=== PATIENT | female | born 1975 | race Caucasian/White ===

== ENCOUNTER → 2017-02-14 | Outpatient (CLI) | payer SELFPAY ==
[~2017-02-14] MED LIST: ALLERGY INJ SUBQ; EXCEDRIN MIGRA1 EACH PO; IBUPROFEN800 MG PO; MULTIPLE VITAM1 EACH PO; ZYRTEC10 M1 PO
--- NOTE | ~2017-02-14 | EKG ---
PATIENT: FIDELINA ADAMSON UNIT #: [id number] Ventricular Rate: 56 BPM Atrial Rate: 56 BPM P-R Interval: 158 ms QRS Duration: 88 ms Q-T Interval: 434 ms QTC Calculation(Bezet): 418 ms P [place]: 23 degrees Calculated R [place]: 5 degrees Calculated T [place]: 4 degrees Diagnosis Line: Sinus bradycardia Diagnosis Line: Cannot rule out Anterior infarct , age Diagnosis Line: undetermined Diagnosis Line: Poor R wave progression questionable lead position Diagnosis Line: or body habitus Diagnosis Line: Borderline ECG Diagnosis Line: Diagnosis Line: Confirmed by EZ KATZ MD ([id number]) on 02/14/2017 Diagnosis Line: 5:25:11 PM INTERPRETING MD: STERLING QUINONES
--- NOTE | ~2017-02-14 | CR63 ---
[facility] A Service of [facility] & [facility] RADIOLOGY TEXT RESULTS PATIENT: FIDELINA ADAMSON LOCATION: [facility] : 77 UNIT #: [id number] AGE: [address]: Mathew Goldsmith III, MD SEX: F ORDER DR: [id number] [facility] [address] [place], [place] [address] [id number] O MR#: [id number] Acc #: [id number] NAME: FIDELINA ADAMSON : 1975 SEX: F STUDY DATE/TIME: 02/14/2017 7:55 UNIT: [facility] ROOM: STUDY DESCRIPTION: CR Chest 2 View Attending Physician: Mathew Goldsmith III, M.D. Referring Physician: Mathew Goldsmith III, M.D. Ordering Physician: Mathew Goldsmith III, M.D. Primary Care Physician: Darlene Tobias A.P.R.N. MEDICAL IMAGING REPORT This report is preliminary unless electronic signature is present EXAM Chest, PA and lateral, 02/14/2017. HISTORY Morbid obesity, preop laparoscopic gastric band placement today. Asthma. FINDINGS PA and lateral examination of the chest upright shows a good expansion of the parenchyma with a normal distribution of the pulmonary vascularity. There is no indication of congestion, effusion, infiltrate, tumor, or nodular density. The pleural reflections and diaphragmatic contours are normal. The cardiac silhouette and mediastinal anatomy is within normal limits. IMPRESSION Normal chest. Dictated by... Shaheed Martinez M.D. THIS IS AN ELECTRONICALLY VERIFIED REPORT Shaheed Martinez M.D. at 02/14/2017 4:39 PM JENNIFER/kylah TD: 02/14/2017 16:10 JOB #: [id number] MEDICAL IMAGING REPORT Page 1 of 1 COPY
--- NOTE | ~2017-02-14 | CR97 ---
[facility] A Service of [facility] & [facility] RADIOLOGY TEXT RESULTS PATIENT: FIDELINA ADAMSON LOCATION: [facility] : 79 UNIT #: [id number] AGE: [address]: Mathew Goldsmith III, MD SEX: F ORDER DR: [id number] [place] [address] [place], [place] [address] [id number] O MR#: [id number] Acc #: [id number] NAME: FIDELINA ADAMSON : 1975 SEX: F STUDY DATE/TIME: 02/14/2017 8:24 UNIT: [facility] ROOM: STUDY DESCRIPTION: CR Esophagram Attending Physician: Mathew Goldsmith III, M.D. Referring Physician: Mathew Goldsmith III, M.D. Ordering Physician: Mathew Goldsmith III, M.D. Primary Care Physician: Joyce HesterPClarkRMisael MEDICAL IMAGING REPORT This report is preliminary unless electronic signature is present EXAM Esophagram, 02/14/2017 HISTORY Planned bariatric surgery. PROCEDURE Solid column esophagram performed with 5 spot images and 0.3 minutes of fluoroscopy FINDINGS The esophagus is normal in course and caliber. There is no hernia, mass, ulceration or stricture. IMPRESSION Normal esophagram. Dictated by... Juan Carter M.D. THIS IS AN ELECTRONICALLY VERIFIED REPORT Juan Carter M.D. at 02/17/2017 9:06 AM EDWINA/allie TD: 02/15/2017 00:42 JOB #: [id number] MEDICAL IMAGING REPORT Page 1 of 1 COPY
[2017-02-14 09:20] LABS: HEMATOCRIT 38.7 % (35.0-45.0); HEMOGLOBIN 13.3 gm/dL (12.0-16.0); MEAN CELL VOLUME 85.8 FL (83-96); MEAN CORPUSCULAR HEMOGLOBIN 29.5 PG (28-34); MEAN CORPUSCULAR HGB CONC 34.4 g/dL (30-36); MEAN PLATELET VOLUME 9.2 FL (6.5-11.5); RED BLOOD COUNT 4.51 X10e (3.90-5.30); RED CELL DISTRIBUTION WIDTH 13.7 % (11.0-15.5); WHITE BLOOD COUNT 9.6 X10e3 (4.0-10.5)
[2017-02-14 09:51] LABS: BILIRUBIN,TOTAL 0.8 mg/dL (0.2-2.0); BUN/CREATININE RATIO 14.44; CALCIUM SERUM 9.2 mg/dL (8.4-10.2); CREATININE SERUM 0.9 mg/dL (0.6-1.4); GLOM FILT RATE Estimated 80.6 mL/min (>60); POTASSIUM 4.2 mmol/L (3.5-5.1); PROTEIN TOTAL SERUM 6.9 g/dL (6.0-8.3)
== END | disposition home or self-care (01) ==
LOC: CAMB 07:14
PROVIDERS: Surgery
DX: Z01.818 Encounter for other preprocedural examination (principal)
CPT/HCPCS: 36415; 71020; 74220; 80053; 80061; 84443; 85027; 93005

== ENCOUNTER → 2017-03-12 | Day surgery (SDC) | payer SELFPAY ==
--- NOTE | ~2017-03-12 | OR ---
Unit #: [id number] #: [id number] Patient: FIDELINA ADAMSON 1080[address] [facility] [address] [place], [place] [address] [id number] O MR#: [id number] NAME: FIDELINA ADAMSON ROOM: Date of Procedure: 03/12/2017 Admission Date: 03/12/2017 Surgeon: Mathew Goldsmith III, M.D. : 1975 Attending Physician: Mathew Goldsmith III, M.D. Primary Care Physician: Darlene Tobias A.P.R.N. OPERATIVE REPORT PREOPERATIVE DIAGNOSIS Chronic morbid obesity. POSTOPERATIVE DIAGNOSIS Chronic morbid obesity. SECONDARY DIAGNOSES Anterior paraesophageal hernia. PROCEDURES PERFORMED Laparoscopic adjustable gastric banding (AP standard with low-profile port) and laparoscopic paraesophageal hernia repair. BABYSITTER Dr. Tyler Taylor. SPECIMENS None. COMPLICATIONS None apparent. ESTIMATED BLOOD LOSS Minimal. INDICATIONS FOR PROCEDURE This is a 41-year-old lady, who has chronic morbid obesity with a BMI of 44. She has been through the bariatric program at [facility] and understands the risks and benefits of the procedure. DESCRIPTION OF PROCEDURE After consent was obtained, including the risks and benefits of slippage, erosion, port dysfunction, and possible failure of weight loss due to noncompliance, the patient was taken to the operating room and placed in the supine position. General anesthetic was administered and the abdomen was prepped and draped in standard surgical fashion. I began by making a 2 cm incision just above and to the left of the umbilicus. I used a Visiport to enter the peritoneal cavity without any difficulty. C02 pneumoperitoneum was then established. Next, I placed a 5 mm port in the right upper quadrant, a 5 mm Carlos liver retractor in the subxiphoid region to provide exposure of the gastroesophageal Unit #: [id number] #: [id number] Patient: FIDELINA ADAMSON. Next, a 10 mm port was placed in the left upper quadrant and a 5 mm port was placed in the left lateral subcostal region. I began by performing an examination of the GE junction to evaluate for a hiatal hernia. We then scored the peritoneal attachments overlying the angle of His. I then opened up the clear space in the gastrohepatic ligament, and then using 2 blunt graspers, I identified the small fat pad crossing over the right crura. I swept the fat anterior to the crura off the crura and using the pars flaccida, I created a retrogastric tunnel where the blunt grasper exited at the angle of His. Once I had made this tunnel safely, I then inserted an Allergan AP band into the abdominal cavity. This adjustable gastric band was then place around the upper part of the stomach and fastened and buckled anteriorly. We then tacked the lateral fundus over the band to the proximal pouch with 2 interrupted 0 Ethibond sutures. I then used a third stitch to imbricate the excess anterior stomach by going from the lesser curvature up towards where the last stitch was placed. We then had excellent hemostasis. I removed the Carlos liver retractor. We then removed the port tubing through the initial port incision. The rest of the ports were removed, and the pneumoperitoneum was released. I then left a small tail on the tubing. We then attached the port to the excess band tubing. We placed a piece of Prolene mesh along the back side of the port and used a Prolene stitch to anchor this mesh in place. We then trimmed the excess mesh so that just a small footprint of mesh was in place behind the port. I then inserted the tubing back into the abdominal cavity, and we placed the port into a small pocket that was made just inferior to where our initial port incision was made. The mesh was in direct contact with the fascia, and this will scar in place to hold the port in place. We then injected all the port sites with 0.25% plain Marcaine, and I reapproximated the skin edges with interrupted 4-0 Vicryl subcuticular sutures. Steri-strips were then applied. The patient tolerated the procedure without any problems and returned to the recovery room in stable condition. ADDENDUM After exposure of the GE junction, the patient was noted to have a small to medium size anterior paraesophageal hernia. I scored the phrenoesophageal ligament, reduced the hernia defect and after identifying both the right and left crura, I reapproximated the defect with an interrupted 0 Ethibond [id number]-[id number] suture. I then proceeded with the case as listed above. Dictated by... Mathew Goldsmith III, M.D. VCL/stacy TD: 03/13/2017 11:39 JOB #: [id number] Unit #: [id number] #: [id number] Patient: FIDELINA ADAMSON OPERATIVE REPORT Page 1 of 1 X Mathew Goldsmith III, MD PROCEDURE OPERATIVE NOTE
--- NOTE | ~2017-03-12 | CR7 ---
[facility] A Service of [facility] RADIOLOGY TEXT RESULTS PATIENT: FIDELINA ADAMSON LOCATION: [facility] : 79 UNIT #: [id number] AGE: [address]: Mathew Goldsmith III, MD SEX: F ORDER DR: [id number] [facility] [address] [place], [place] [address] [id number] O MR#: [id number] Acc #: [id number] NAME: FIDELINA ADAMSON : 1975 SEX: F STUDY DATE/TIME: 03/12/2017 10:03 UNIT: [facility] ROOM: STUDY DESCRIPTION: CR Abdomen Single AP View Attending Physician: Mathew Goldsmith III, M.D. Ordering Physician: Mathew Goldsmith III, M.D. Primary Care Physician: Darlene Tobias A.P.R.N. MEDICAL IMAGING REPORT This report is preliminary unless electronic signature is present EXAM AP abdomen 03/12/2017 HISTORY Postop laparoscopic gastric band placement today. Nausea. Morbid obesity. COMPARISON None. FINDINGS Gastric band device has been placed at or just slightly below the expected location of the esophagogastric junction with a phi angle of approximately 52.2 degrees. The insufflation port is located within the left lower abdomen. Nonspecific but nonobstructed bowel gas pattern with mild colonic stool burden. Very mild gaseous distension of the stomach. Imaged lung bases are clear. IMPRESSION Satisfactory postoperative appearance status post gastric band device placement with phi angle of 52 degrees. No acute findings. Dictated by... Milli Holloway M.D. THIS IS AN ELECTRONICALLY VERIFIED REPORT Milli Holloway M.D. at 03/13/2017 9:39 AM [facility]/jeovany TD: 03/12/2017 12:21 [facility] A Service of [facility] RADIOLOGY TEXT RESULTS PATIENT: FIDELINA ADAMSON LOCATION: [facility] : 79 UNIT #: [id number] AGE: [address]: Mathew Goldsmith III, MD SEX: F ORDER DR: JOB #: [id number] MEDICAL IMAGING REPORT Page 1 of 1 COPY
== END | disposition home or self-care (01) ==
LOC: CSUR 02-26 07:30
DX: E66.01 Morbid (severe) obesity due to excess calories (principal); K44.9 Diaphragmatic hernia without obstruction or gangrene; J45.909 Unspecified asthma, uncomplicated; Z68.41 Body mass index [BMI] 40.0-44.9, adult; Z88.5 Allergy status to narcotic agent
CPT/HCPCS: 74000; 84703; C1781; J0330; J0690; J1650; J1885; J2250; J2405; J2710; J3010